=== PATIENT | male | born 1960 ===

== ENCOUNTER 2016-06-06 21:10 | Emergency (ER) | payer SELFPAY ==
[~2016-06-06] VITALS: Ht 167.6 cm; Wt 80.5 kg
[2016-06-06 21:36] VITALS: Ht 167.6 cm; Wt 80.5 kg
== END 2016-06-07 01:34 | disposition left against medical advice (07) ==
LOC: E/R 21:10
DX: Z53.21 Procedure and treatment not carried out due to patient leaving prior to being seen by health care provider (principal)